=== PATIENT | female | born 1990 | race Caucasian/White ===

== ENCOUNTER → 2016-08-22 | Outpatient (CLI) | payer BC | END | disposition home or self-care (01) | LOC: RAD.S 16:08 | DX: O20.9 Hemorrhage in early pregnancy, unspecified (principal); O36.80X9 Pregnancy with inconclusive fetal viability, other fetus; O76 Abnormality in fetal heart rate and rhythm complicating labor and delivery; Z3A.01 Less than 8 weeks gestation of pregnancy ==